=== PATIENT | male | born 1945 | race Caucasian/White ===

== ENCOUNTER → 2019-02-19 | Outpatient (CLI) | payer MEDICARE ==
[~2019-02-19] MED LIST: B-1250TA3 PO; CALC-190 PO; IBUP-1022 PO; IRON27TA2 PO; MOVE1TAB PO
[2019-02-19 10:52] LABS: HEMATOCRIT 40.4 % (42.0-52.0); HEMOGLOBIN 13.6 g/dl (13.5-17.5); MEAN CORPUSCULAR HEMOGLOBIN 31.3 pg (27.0-33.0); MEAN CORPUSCULAR HGB CONC 33.7 g/dl (32.0-36.5); MEAN CORPUSCULAR VOLUME 92.9 fl (80.0-96.0); PLATELET COUNT, AUTOMATED 226 10^3/uL (150-450); RED BLOOD COUNT 4.35 10^6/uL (4.30-6.10); WHITE BLOOD COUNT 6.8 10^3/uL (4.0-10.0)
[2019-02-19 11:01] LABS: INR 1.03; PROTHROMBIN TIME 13.6 SECONDS (12.1-14.4)
[2019-02-19 11:13] LABS: ERYTHROCYTE SEDIMENTATION RATE 7 mm/hr (0-20)
[2019-02-19 11:19] LABS: ALBUMIN 3.9 GM/DL (3.2-5.2); ALT/SGPT 28 U/L (12-78); BILIRUBIN,TOTAL 0.5 MG/DL (0.2-1.0); BLOOD UREA NITROGEN 17 MG/DL (7-18); CALCIUM LEVEL 9.1 MG/DL (8.8-10.2); CARBON DIOXIDE LEVEL 29 MEQ/L (21-32); CHLORIDE LEVEL 107 MEQ/L (98-107); CREATININE FOR GFR 0.99 MG/DL (0.70-1.30); GLOMERULAR FILTRATION RATE > 60.0 (>42); GLUCOSE, FASTING 92 MG/DL (70-100); POTASSIUM SERUM 4.6 MEQ/L (3.5-5.1); SODIUM LEVEL 141 MEQ/L (136-145); TOTAL PROTEIN 7.1 GM/DL (6.4-8.2)
--- NOTE | 2019-02-19 14:17 | REP ---
REASON: Arthritis. COMPARISON: 03/09/2005. A subtle asymmetric density has developed in the right upper lobe, but superimposed over the anterior end of the right 4th rib. A small nodular density is now seen in the right lower lobe. This potentially represents the patient's nipple shadow. The pleural angles are sharp and the heart is not enlarged. The left lung is clear. There is no significant change in the appearance of the osseous structures. IMPRESSION: 1. Subtle asymmetric right upper lobe density as described above, but possibly representing a compilation of densities. 2. Nodule in the right lower lobe as described above. 3. #1 plus #[address] of the chest with contrast. Electronically Signed by Nishant Corrigan DO 02/19/2019 03:41 P
--- NOTE | 2019-02-20 00:28 | ECGEPIP ---
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 CONSIDER LEFT ANTERIOR HEMIBLOCK NONSPECIFIC INTRAVENTRICULAR CONDUCTION DELAY NO PRIOR TRACING IN THE SYSTEM Electronically Signed On 02-20-2019 0:28:19 EDT by Raghu Berman
== END ==
LOC: M LAB 10:14
PROVIDERS: ATTEND Orthopaedic Surgery
DX: M16.11 Unilateral primary osteoarthritis, right hip (principal); R91.8 Other nonspecific abnormal finding of lung field

== ENCOUNTER 2019-03-08 05:51 | Inpatient (IN) | payer MEDICARE ==
--- NOTE | 2019-03-06 11:45 | HPE ---
DATE OF ANTICIPATED ADMISSION: 03/08/2019 ATTENDING PHYSICIAN: Dr. Tj Ventura CHIEF COMPLAINT: Right hip pain and stiffness. HISTORY: This is a pleasant 73-year-old male patient with progressively worsening right hip pain and stiffness. He has failed to improve with conservative management and has continued pain with weightbearing activities. He has elected for surgery for his continued symptoms and has consented for a right total hip arthroplasty by Dr. Ventura. ALLERGIES: NO KNOWN DRUG ALLERGIES. CURRENT MEDICATIONS: - calcium 500 mg - iron 325 mg - vitamin B12 100 mcg PAST MEDICAL HISTORY: None. PAST SURGICAL HISTORY: Abdominal aortic aneurysm resection, tonsillectomy and appendectomy. SOCIAL HISTORY: The patient does not smoke or use alcohol. FAMILY HISTORY: Father leukemia at age 72. REVIEW OF SYSTEMS: Patient denies fever, chills, chest pain, shortness breath, nausea, vomiting, diarrhea. He reports pain in the right hip. PHYSICAL EXAMINATION: Height 69 inches, weight 187.8, temperature 97.6, blood pressure 125/80. He is normocephalic, atraumatic. S1, S2 auscultated with no murmurs, rubs or gallops. Lungs: Clear to auscultation bilaterally with no wheezes, rales, rhonchi. Abdomen: Soft, nontender. Examination of the right hip reveals pain throughout range of motion. Right lower extremity is well perfused and neurovascular status is intact. Overlying skin of the right hip shows no erythema or rashes and is intact. Electrocardiogram (EKG) with sinus bradycardia, left axis deviation and possible left anterior elian block. Chest x-ray with subtle asymmetric right upper lobe density and a nodule in the right lower lobe. Otherwise, no cardiopulmonary disease noted. LABORATORY DATA: White count 6.8, red count 4.35, hemoglobin 13.6, hematocrit 40.4, ESR 7, BUN 17, creatinine 0.99, PT 13.6, INR 1.03. Preoperative medical optimization done by Dr. Jarvis and was reviewed today on the chart. Additionally noted is that they did review the chest x-ray and has cleared the patient with out recommended CT scan. IMPRESSION: Right hip symptomatic osteoarthritis. PLAN: Consented for right total hip arthroplasty with Dr. Ventura.
[~2019-03-08] VITALS: Ht 182.9 cm; Wt 83.8 kg
[2019-03-08] VITALS (9 sets, daily range): BP systolic 128–169; BP diastolic 65–100
[2019-03-08] MEDS ORDERED: LIDOCAINE 1% MDV 20ML VIAL SQ PRN (06:00)
[2019-03-08] MEDS ORDERED: ONDANSETRON 4MG/2ML VIAL (J2405) As Ordered ONE (06:58)
[2019-03-08] MEDS ORDERED: dexameTHASONE 4 MG/ML 1ML VIAL (J1100) As Ordered ONE (06:58)
[2019-03-08] MEDS ORDERED: PROPOFOL 200 MG/20 ML VIAL As Ordered ONE (06:58)
[2019-03-08] MEDS ORDERED: MIDAZOLAM INJ 2 MG/2 ML VIAL (J2250) As Ordered ONE (06:58)
[2019-03-08] MEDS ORDERED: LIDOCAINE 2% INJ 100 MG/5 ML SDV (FOR ANES.) As Ordered ONE ×2 (06:58→07:04)
[2019-03-08] MEDS ORDERED: fentaNYL 100 MCG/2 ML INJECTION (J3010) As Ordered ONE ×2 (06:59→08:36)
[2019-03-08] MEDS ORDERED: TRANEXAMIC ACID 100 MG/ML 10ML VIAL As Ordered ONE (07:00)
[2019-03-08] MEDS ORDERED: EPINEPHrine INJ 1 MG/ML 1ML AMP As Ordered ONE (07:00)
[2019-03-08] MEDS ORDERED: ceFAZolin 1GM INJ (J0690 PER 500MG) As Ordered ONE (07:00)
[2019-03-08] MEDS ORDERED: LR 1,000 ML IV ONE (07:00)
[2019-03-08] MEDS ORDERED: BUPIVACAINE LIPOSOME/PF 1.3% 20ML VIAL (13.3MG/ML)(EXPAREL)(C9290 PER1MG) As Ordered ONE (07:01)
[2019-03-08] MEDS ORDERED: ROCURONIUM BROMIDE 50 MG/5 ML VIAL As Ordered ONE (07:03)
[2019-03-08] MEDS ORDERED: BUPIVACAINE HCL 0.5% 30 ML VIAL As Ordered ONE (07:59)
[2019-03-08] MEDS ORDERED: ePHEDrine SULFATE 25 MG/5 ML(5MG/ML) SYRINGE As Ordered ONE ×2 (08:00→08:37)
[2019-03-08] MEDS ORDERED: KETOROLAC 60 MG/2 ML VIAL (J1885) As Ordered ONE (08:38)
--- NOTE | 2019-03-08 09:27 | IPN ---
DATE: 03/08/2019 The patient is seen and examined preoperatively. He wished to have a right total hip arthroplasty. He understands the nature this, the risks of bleeding, infection, damage to nerves, vessels, persistent pain, wear, loosening, dislocation, leg length inequality, blood clots, medical problems, among others. The patient cannot tolerate the pain anymore. Preop clearance was obtained.
[2019-03-08] MEDS ORDERED: MEPERIDINE INJ 25 MG/ML VIAL (J2175) IV PRN (09:45)
[2019-03-08] MEDS ORDERED: MORPHINE 4 MG/ML 1ML VIAL/SYRINGE (J2270) IV PRN ×2 (09:45→11:00)
[2019-03-08] MEDS ORDERED: MORPHINE 2 MG/ML 1ML SYRINGE (J2270) IV PRN (09:45)
[2019-03-08] MEDS ORDERED: LR 1,000 ML IV SCH (09:45)
[2019-03-08] MEDS ORDERED: ONDANSETRON 4MG/2ML VIAL (J2405) IV PRN ×2 (09:45)
[2019-03-08] MEDS ORDERED: METOCLOPRAMIDE INJ 10MG/2ML VIAL (J2765) IV PRN (09:45)
[2019-03-08] MEDS ORDERED: FLEET ENEMA PR PRN (09:45)
[2019-03-08] MEDS ORDERED: fentaNYL 100 MCG/2 ML INJECTION (J3010) IV PRN (09:45)
[2019-03-08] MEDS ORDERED: ACETAMINOPHEN TAB 650MG DOSE (2X325MG) PO PRN (09:45)
--- NOTE | 2019-03-08 10:01 | CR ---
DATE OF CONSULTATION: 03/08/2019 PRIMARY CARE PROVIDER: Dr. Kerri Saavedra in [place]. The patient is seen postoperative, status post right hip replacement. Medical history is essentially benign. He had an abdominal aortic aneurysm resected in the past. He has had no significant problems since then. He runs a low hemoglobin due to frequent blood transfusions. He has no coronary artery disease, diabetes, hypertension, hyperlipidemia. SURGICAL HISTORY: 1. Appendectomy. 2. Tonsillectomy. MEDICATIONS: Just over the counter preparations like calcium, iron, B12, and then he takes a prescribed eye drop. SOCIAL HISTORY: No smoking. No alcohol. FAMILY HISTORY: Father had leukemia at age 72. REVIEW OF SYSTEMS: No chest pain, shortness of breath, palpitations, rectal bleeding or urinary bleeding, epistaxis. PHYSICAL EXAMINATION: Vitals signs per flow sheet. Conversant, jovial. HEENT: Unremarkable. LUNGS: Clear. HEART: Without murmur. ABDOMEN: Soft, nontender. No masses. EXTREMITIES: No peripheral edema. Good distal pulses. IMPRESSION: 1. Postoperative hip. He has no ongoing medical issues. The hospitalist group is available for medical care should anything arise.
--- NOTE | 2019-03-08 10:05 | REP ---
Clinical: Status post arthroplasty. Technique: AP and cross-table lateral views. Findings: The patient is status post right hip replacement with normal positioning and appearance to the femoral and acetabular components. Overlying postsurgical changes appreciated. Impression: Satisfactory right hip replacement radiographs. Electronically Signed by Rafal Juan MD 03/08/2019 09:56 A
[2019-03-08] MEDS: PERCOCET 5MG/325MG TAB PO PRN ×5 (10:07→23:52)
[2019-03-08] MEDS: LR 1,000 ML IV SCH ×2 (14:18→23:05)
--- NOTE | 2019-03-08 15:48 | RO ---
DATE OF PROCEDURE: 03/08/2019 PREOPERATIVE DIAGNOSIS: Right hip osteoarthritis. DIAGNOSIS: Right hip osteoarthritis. PROCEDURE: Right total hip arthroplasty using a Big Pool with a +1.5, 40 head and a 62 cup. SURGEON: Tj Ventura MD AUTOMATION QTP TESTER: KALI Zavala ANESTHESIA: Spinal, followed by general. ESTIMATED BLOOD LOSS: 300. COMPLICATIONS: None. INDICATIONS: This is a 74-year-old gentleman who has had gradually worsening right hip pain with significant stiffness. He wished to ahead with hip replacement. He understood the nature of the risks associated with this. He had failed conservative management. DESCRIPTION OF PROCEDURE: The patient was taken to the operating room, placed in the supine position and then transferred into the left lateral decubitus position. The right hip was prepped and draped in usual sterile fashion. It was noted that he had very little external rotation on the table, so it made the prep somewhat difficult to position his leg. We then did a time-out. I performed a longitudinal incision and sharp dissection was carried down through subcutaneous tissue. At this point, I did have to convert him over to a general due to some sensation at the incision site. The fascia indigo was incised. I then divided the anterior 40% of the abductor off of the anterior aspect of the hip and exposed the femoral neck. With some difficulty we were able to dislocate the hip. Leg was in the bag. I then used the canal initiating reamer, canal finding reamer, lateralizing reamer and then sequentially reamed up to initially a size 8, which had good purchase, and we were debating between an 8 and 9. I then made the neck cut about a fingerbreadth up from lesser trochanter and removed the head. We directed our attention to the acetabulum. Soft tissue was removed from around the acetabulum. Controlled hemostasis with the cautery, then sequentially reamed up to a size 61 reamer, which had good concentric reaming, good bleeding bone and was medialized down to the floor. A 62 acetabular component was then placed appropriate on anteversion horizontal tilt, impacted in place and a very solid fit was noted. [place] hole eliminator was placed. I had irrigated multiple times along the way. The 40 x 62 acetabular liner was then impacted in place and was well seated. We directed our attention back to the femur. Used the cookie cutter to remove excess bone from the proximal aspect of the femur, then sequentially broached and actually were able to broach eventually up to a size 9 after reaming to a 9. Excellent fit was noted. It actually countersunk a couple millimeters, so I planed down and we were at about three-quarters of a fingerbreadth up from lesser trochanter, which I was pleased with. Trial reduction was performed with the +1.5, and I was very pleased with this. We did have to remove some anterior and posterior osteophytes with an osteotome and rongeur, but overall excellent position and stability were noted. There was minimal shuck in full extension. Excellent stability in external rotation, although he was fairly stiff in external sternal rotation I think chronically had some soft tissue stiffness in this plane. Very stable in flexion internal rotation. I then removed the trial components and irrigated, placed the actual high offset 9 Big Pool stem, impacted down. Excellent fit was noted. I dried the taper, placed the +1.5, 40 ball, impacted this in place. We reduced the hip, put the hip through range of motion, again very pleased with stability and position. I again irrigated. I had irrigated the canal prior to placement of the stem. Tranexamic acid (TXA) solution was placed. I prepared the minimus with #1 Vicryl suture and the abductor with #1 Vicryl sutures through several bony holes. Excellent repair was noted. I then irrigated, closed the fascia indigo with #1 Vicryl suture in running Stratafix suture, the subcu with #2-0 Vicryl and the skin with ceci. The Exparel had been placed in the deep tissues. The TXA had also been placed but then irrigated out after a minute or two. Sterile dressing was applied. He was taken to recovery room in stable condition. There were known complications. The plan will be routine postop. ADDENDUM: (Dictated 03/08/2019) The assistant professor of mathematics was instrumental in holding retractors and assisting in reducing and dislocating the hip and assisting in wound closure.
[2019-03-09 02:00] VITALS: BP 123/66
[2019-03-09 06:00] VITALS: BP 116/74
[2019-03-09] MEDS: PERCOCET 5MG/325MG TAB PO PRN (06:10)
[2019-03-09 06:38] LABS: HEMATOCRIT 32.2 % (42.0-52.0); MEAN CORPUSCULAR HEMOGLOBIN 32.1 pg (27.0-33.0); MEAN CORPUSCULAR HGB CONC 34.2 g/dl (32.0-36.5); MEAN CORPUSCULAR VOLUME 93.9 fl (80.0-96.0); PLATELET COUNT, AUTOMATED 190 10^3/uL (150-450); RED BLOOD COUNT 3.43 10^6/uL (4.30-6.10)
[2019-03-09] MEDS ORDERED: PERC5TAB12 PO (07:18)
[2019-03-09] MEDS ORDERED: XARE10TA PO (07:18)
[2019-03-09] MEDS ORDERED: SENOKOT S TAB PO SCH (09:00)
[2019-03-09] MEDS ORDERED: MOM 30ML SUSPENSION UDC PO SCH (09:00)
[2019-03-09] MEDS ORDERED: MIRALAX *UNIT DOSE* 17GM PACKET PO SCH (09:00)
[2019-03-09 09:04] LABS: BLOOD UREA NITROGEN 21 MG/DL (7-18); CALCIUM LEVEL 8.4 MG/DL (8.8-10.2); CARBON DIOXIDE LEVEL 26 MEQ/L (21-32); CHLORIDE LEVEL 103 MEQ/L (98-107); CREATININE FOR GFR 0.95 MG/DL (0.70-1.30); GLOMERULAR FILTRATION RATE > 60.0 (>42); GLUCOSE, FASTING 126 MG/DL (70-100); SODIUM LEVEL 137 MEQ/L (136-145)
[2019-03-09 10:00] VITALS: BP 130/81
[2019-03-09] MEDS ORDERED: RIVAROXABAN 10 MG TAB (XARELTO) PO SCH (18:00)
--- NOTE | 2019-03-09 18:23 | IPNPDOC ---
Date Seen The patient was seen on 03/09/19. Progress Note SUBJECTIVE: Patient reports feeling fine, some soreness over his hip but does not bother him too much. He said that he is a very active person and has been up walking. OBJECTIVE PHYSICAL EXAMINATION: VITAL SIGNS: Please see below. General: No acute distress, Alert Eyes: Normal sclera, EOMI, [place] HENT: Atraumatic, neck supple, moist mucous membranes Cardiovascular: Normal rate, normal rhythm. No murmurs appreciated. Pulmonary: Clear to auscultation b/l, no wheezing GI: Soft, nontender, nondistended MSK: R. hip tenderness. Overlying bandage clean and dry. Skin: Warm and dry Neuro: CN grossly intact. No focal deficits. Strengths equal b/l. Psych: oriented x 3 LABORATORY DATA, IMAGING STUDIES, MICROBIOLOGY: Please see below. ASSESSMENT AND PLAN: 1. R. total hip arthroplasty - Surgery 03/08/19. - c/w PT/OT. - Pain control. - f/u Ortho post discharge. DISPOSITION: . VS, I&O, 24H, [facility] Vital Signs/I&O Vital Signs Date Time Temp Pulse Resp B/P (MAP) Pulse Ox O2 Delivery O2 Flow Rate FiO2 03/09/19 10:00 98.6 70 18 130/81 (97) 91 03/08/19 09:45 2 I&O- Last 24 Hours up to 6 AM 03/09/19 06:00 Intake Total 3660 ml Output Total 2100 ml Balance 1560 ml Laboratory Data 24H LABS Laboratory Tests 2 03/09/19 06:19: Anion Gap 8, Glomerular Filtration Rate > 60.0, Blood Urea Nitrogen 21H, Creatinine 0.95, Sodium Level 137, Potassium Level 4.0, Chloride Level 103, Carbon Dioxide Level 26, Calcium Level 8.4L 03/09/19 06:22: Nucleated Red Blood Cells % (auto) 0.0 CBC/BMP Laboratory Tests 03/09/19 06:19 Calcium Level 8.4 L 03/09/19 06:22 Red Blood Count 3.43 L, Mean Corpuscular Volume 93.9, Mean Corpuscular Hemoglobin 32.1, Mean Corpuscular Hemoglobin Concent 34.2, Red Cell Distribution Width 12.5 SCOTT AVILA MD March 09, 2019 18:23
== END 2019-03-09 13:10 | disposition home or self-care (01) | DRG 470 ==
LOC: M OR 05:51 → M MS5PR 10:50
PROVIDERS: ADMIT Orthopaedic Surgery; ATTEND Orthopaedic Surgery
PROC: 0SR902Z Replacement of Right Hip Joint with Metal on Polyethylene Synthetic Substitute, Open Approach (ICD-10-PCS; principal; 2019-03-08 07:30)
DX: M16.11 Unilateral primary osteoarthritis, right hip (principal); D64.9 Anemia, unspecified; Z90.49 Acquired absence of other specified parts of digestive tract; Z79.899 Other long term (current) drug therapy

== ENCOUNTER → 2022-01-06 | Outpatient (CLI) | payer MEDICARE ==
[~2022-01-06] MED LIST changes: +PERC5TAB12 PO; +XARE10TA PO
[2022-01-06 12:16] LABS: PLATELET COUNT, AUTOMATED 205 10^3/uL (150-450)
[2022-01-06 12:28] LABS: COLLAGEN EPINEPHRINE 111 SECONDS (74-162)
[2022-01-06 12:33] LABS: INR 1.11; PROTHROMBIN TIME 14.7 SECONDS (12.7-14.5)
[2022-01-06 12:34] LABS: PARTIAL THROMBOPLASTIN TIME 38.9 SECONDS (25.9-37.0)
== END ==
LOC: M LAB 11:32
PROVIDERS: ATTEND Physician Assistant
DX: M51.36 Other intervertebral disc degeneration, lumbar region (principal)

== ENCOUNTER → 2025-05-28 | Outpatient (CLI) | payer MEDICARE | LOC: M PLAIMG 13:30 | PROVIDERS: ATTEND Internal Medicine Pulmonary Disease | DX: R91.8 Other nonspecific abnormal finding of lung field (principal); I70.0 Atherosclerosis of aorta; I25.10 Atherosclerotic heart disease of native coronary artery without angina pectoris; J18.9 Pneumonia, unspecified organism ==

== ENCOUNTER → 2025-07-23 | Outpatient (CLI) | payer MEDICARE ==
[~2025-07-23] MED LIST changes: -IBUP-1022 PO; +IBUP600T42 PO
== END ==
LOC: M PLAIMG 09:26
PROVIDERS: ATTEND Internal Medicine Pulmonary Disease
DX: R91.8 Other nonspecific abnormal finding of lung field (principal)

== ENCOUNTER → 2025-08-29 | Outpatient (CLI) | payer MEDICARE ==
[~2025-08-29] MED LIST changes: +BRIM0.2S13 OU; +BUDE10.32 IH; +CEFD1CAP9 PO; +CETI-24 PO; +FLUT15.820; +FOLI1TAB11 PO; +PRED10PA PO; +TIMO5DRO9 OU; +VENTAER INH
[2025-08-29 11:02] LABS: PLATELET COUNT, AUTOMATED 235 10^3/uL (150-450)
[2025-08-29 11:20] LABS: INR 0.95
== END ==
LOC: M LAB 10:07
PROVIDERS: ATTEND Internal Medicine Pulmonary Disease
DX: R91.8 Other nonspecific abnormal finding of lung field (principal); Z79.01 Long term (current) use of anticoagulants

== ENCOUNTER 2025-09-03 06:56 | Day surgery (SDC) | payer MEDICARE ==
[~2025-09-03] VITALS: Ht 172.7 cm; Wt 73.9 kg
[~2025-09-03 06:56] MED LIST changes: +LIDOCAINE 2% 100 MG/5 ML SDV (FOR ANES.) As Ordered ONE; +ONDANSETRON 4MG/2ML VIAL As Ordered ONE; +ROCURONIUM BROMIDE 50MG/5ML VIAL As Ordered ONE; +SUGAMMADEX SODIUM 500 MG/5 ML VIAL As Ordered ONE; +dexAMETHasone 4 MG/ML 1 ML VIAL As Ordered ONE
[2025-09-03] MEDS: LR 1,000 ML IV SCH (07:35)
[2025-09-03] MEDS: LIDOCAINE PRES-FREE 2% 10 ML AMP INH ONE (08:05)
[2025-09-03] MEDS: ALBUTEROL SULFATE 2.5 MG/0.5 ML INH CONCENTRATE NEB SOLN INH ONE (08:05)
[2025-09-03] MEDS: CETACAINE SPRAY 5 GM As Ordered ONE (08:35)
[2025-09-03] MEDS ORDERED: ACETAMINOPHEN 1000MG/100ML IV BAG As Ordered ONE (08:36)
[2025-09-03] MEDS: THROMBIN 5,000 UNITS VIAL As Ordered ONE (09:00)
[2025-09-03] MEDS: EPINEPHrine 1 MG/10 ML SYRINGE 1.5IN As Ordered ONE (09:00)
[2025-09-03 09:50] VITALS: BP 170/86; TEMP 97.3; O2SAT 98
== END 2025-09-03 09:53 | disposition home or self-care (01) ==
LOC: M SDC 06:56
PROVIDERS: ATTEND Internal Medicine Pulmonary Disease
DX: R91.8 Other nonspecific abnormal finding of lung field (principal); B96.5 Pseudomonas (aeruginosa) (mallei) (pseudomallei) as the cause of diseases classified elsewhere; J38.4 Edema of larynx; R09.3 Abnormal sputum; Z79.51 Long term (current) use of inhaled steroids; Z79.899 Other long term (current) drug therapy
CPT/HCPCS: 31622; 87070; 87102; 87116; 87186; 87205; 87206; 88104; J0131; J1100; J2405; J3010